=== PATIENT | female | born 1955 | race Two or more races ===

== ENCOUNTER 2022-03-20 13:15 | Emergency (ER) | payer BC, OTHER ==
[~2022-03-20] VITALS: Ht 172.7 cm; Wt 77.1 kg
[2022-03-20 14:30] VITALS: BP 143/66
[2022-03-20] MEDS ORDERED: ALBUTEROL SULF 2.5 MG/0.5ML(0.5%) NEB SOLN NEB ONE (14:30)
[2022-03-20] MEDS ORDERED: IPRATROPIUM BROM 0.5 MG/2.5ML INH SOL NEB ONE (14:30)
[2022-03-20] MEDS ORDERED: PROM1SOL4 PO (15:10)
[2022-03-20] MEDS ORDERED: LEVO500T31 PO (15:10)
[2022-03-20] MEDS ORDERED: PRED20TA2 PO (15:10)
== END 2022-03-20 15:17 | disposition home or self-care (01) ==
LOC: ER 13:15
DX: J45.909 Unspecified asthma, uncomplicated (principal); E11.9 Type 2 diabetes mellitus without complications; E78.5 Hyperlipidemia, unspecified; I10 Essential (primary) hypertension; Z90.710 Acquired absence of both cervix and uterus
CPT/HCPCS: 71045; 71046; 94640; 99284; J7644

== ENCOUNTER 2023-01-03 17:07 | Inpatient (IN) | payer OTHER ==
[~2023-01-03] VITALS: Ht 170.2 cm; Wt 74.5 kg
[~2023-01-03 17:07] MED LIST: LEVO500T31 PO; NITR-87 PO; PRED20TA2 PO; PROM1SOL4 PO
[2023-01-03 18:39] LABS: Basophils # (auto) 0.1 10 ^3/uL (0-0.2); Basophils % (auto) 0.7 % (0.0-2.0); Eosinophils # (auto) 0 10 ^3/uL (0-0.8); Eosinophils % (auto) 0.1 % (0.0-7.0); Hematocrit 45.9 % (36.0-46.0); Hemoglobin 15.8 g/dL (12.2-16.2); Lymphocytes # (auto) 0.4 10 ^3/uL (0.4-5.4); Mean Corpuscular Hemoglobin 31.1 pg (28.0-32.0); Mean Corpuscular Hgb Conc. 34.4 g/dL (32.0-36.0); Mean Corpuscular Volume 90.5 fL (80.0-100.0); Monocytes # (auto) 0.5 10 ^3/uL (0-1.3); Monocytes % (auto) 5.9 % (0.0-12.0); Neutrophils # (auto) 7.7 10 ^3/uL (1.6-8.6); Neutrophils % (auto) 88.3 % (37.0-80.0); Nucleated Red Blood Cells % 0.3 %; Red Blood Cells 5.07 10^6/uL (4.0-5.20); Red Cell Distribution Width 14.9 % (11.8-14.3); White Blood Cell 8.7 10^3/uL (4.4-10.8)
[2023-01-03 19:06] LABS: Albumin 2.9 g/dL (3.4-5.0); Calcium 8.6 mg/dL (8.5-10.1); Potassium 3.3 mmol/L (3.5-5.1)
[2023-01-03 19:10] LABS: BUN/Creatinine Ratio 29.1; Bilirubin, Total 0.6 mg/dL (0.2-1.0); Total Protein 7.2 g/dL (6.4-8.2)
[2023-01-03] MEDS ORDERED: LACTATED RINGER'S 2,000 ML IV ONE (19:15)
[2023-01-03] MEDS ORDERED: ACETAMINOPHEN 325 MG TAB PO ONE (19:15)
[2023-01-03] MEDS ORDERED: cefTRIAXone 1GM/50ML D5W 50 ML IV ONE (19:30)
[2023-01-03] MEDS ORDERED: POTASSIUM CHL 20 Meq TABLET PO ONE (19:45)
[2023-01-03 20:19] LABS: Urine Bacteria NONE SEEN /hpf (None Seen); Urine Blood Negative /uL (Negative); Urine Budding Yeast FEW /hpf (None Seen); Urine Mucus FEW (None Seen); Urine WBC 20 /hpf (0 - 5)
[2023-01-03] MEDS ORDERED: ALBUTEROL SULF 2.5 MG/0.5ML(0.5%) NEB SOLN NEB ONE (21:00)
[2023-01-03] MEDS ORDERED: IPRATROPIUM BROM 0.5 MG/2.5ML INH SOL NEB ONE (21:00)
[2023-01-03] MEDS ORDERED: DexAMETHasone SOD PHOS 10MG/1ML VIAL INJ IV ONE (21:00)
[2023-01-03] MEDS ORDERED: CIPR-173 PO ×2 (21:11)
[2023-01-03] MEDS ORDERED: ACETAMINOPHEN 325 MG TAB PO PRN (22:00)
[2023-01-03] MEDS ORDERED: InsuLIN REG 1unit/0.01ml Soln (100units/ml) SC SCH (22:00)
[2023-01-03] MEDS ORDERED: ONDANSETRON HCL 4 MG/2 ML VIAL IV PRN (22:00)
[2023-01-03] MEDS ORDERED: DOCUSATE SOD 100 MG CAP PO PRN (22:00)
[2023-01-03] MEDS ORDERED: hydrALAZINE HCL 20 MG/ML VL IV ONE (22:00)
[2023-01-03] MEDS ORDERED: MORPHINE SULFATE INJ 2 MG/ml SYRG IV PRN ×2 (22:00→23:30)
[2023-01-03] MEDS ORDERED: ALBUTEROL SULF 2.5 MG/0.5ML(0.5%) NEB SOLN NEB PRN (22:00)
[2023-01-03] MEDS ORDERED: hydrALAZINE HCL 20 MG/ML VL IV PRN (22:00)
[2023-01-03] MEDS: SODIUM CHLORIDE 0.9% 1,000 ML IV SCH (22:00)
[2023-01-03] MEDS ORDERED: IPRATROPIUM BROM 0.5 MG/2.5ML INH SOL NEB PRN (22:00)
[2023-01-03] MEDS ORDERED: DEXTROSE (50%) 50ML SYRG IV PRN (22:00)
[2023-01-03] MEDS: METOPROLOL TARTRATE 50 MG TAB PO SCH (23:02)
[2023-01-03] MEDS: FAMOTIDINE (10MG/ML) 2ML VL IV SCH (23:03)
[2023-01-03 23:08] VITALS: BP 124/64
[2023-01-03] MEDS: ACCU-CHEK COMFORT CURVE STRIP VI SCH (23:10)
[2023-01-03] MEDS ORDERED: NITROGLYCERIN 0.4 MG SL TAB SL PRN (23:30)
[2023-01-04] MEDS: SODIUM CHLORIDE 0.9% 1,000 ML IV SCH (04:10)
[2023-01-04 05:08] LABS: Basophils # (auto) 0 10 ^3/uL (0-0.2); Basophils % (auto) 0.1 % (0.0-2.0); Eosinophils # (auto) 0 10 ^3/uL (0-0.8); Hematocrit 41.9 % (36.0-46.0); Lymphocytes # (auto) 0.6 10 ^3/uL (0.4-5.4); Lymphocytes % (auto) 7.9 % (10.0-50.0); Mean Corpuscular Hemoglobin 31.1 pg (28.0-32.0); Mean Corpuscular Hgb Conc. 33.5 g/dL (32.0-36.0); Mean Corpuscular Volume 92.9 fL (80.0-100.0); Monocytes # (auto) 0.3 10 ^3/uL (0-1.3); Monocytes % (auto) 3.9 % (0.0-12.0); Neutrophils # (auto) 6.5 10 ^3/uL (1.6-8.6); Neutrophils % (auto) 88.1 % (37.0-80.0); Nucleated Red Blood Cells % 0.1 %; Red Blood Cells 4.52 10^6/uL (4.0-5.20); Red Cell Distribution Width 14.9 % (11.8-14.3); White Blood Cell 7.4 10^3/uL (4.4-10.8)
[2023-01-04 05:37] LABS: Albumin 2.6 g/dL (3.4-5.0); BUN/Creatinine Ratio 28.4; Calcium 9.1 mg/dL (8.5-10.1); Potassium 4.6 mmol/L (3.5-5.1)
[2023-01-04 05:48] LABS: Bilirubin, Total 0.4 mg/dL (0.2-1.0); Total Protein 6.7 g/dL (6.4-8.2)
[2023-01-04] MEDS: ACCU-CHEK COMFORT CURVE STRIP VI SCH ×3 (06:35→22:24)
[2023-01-04] MEDS ORDERED: InsuLIN REG 1unit/0.01ml Soln (100units/ml) SC SCH (07:00)
[2023-01-04] MEDS: FAMOTIDINE (10MG/ML) 2ML VL IV SCH (10:00)
[2023-01-04] MEDS ORDERED: InsuLIN REG 1unit/0.01ml Soln (100units/ml) SC ONE (10:00)
[2023-01-04] MEDS: ENOXAPARIN SOD 40 MG/0.4 ML SYRINGE SC SCH (10:00)
[2023-01-04] MEDS: METOPROLOL TARTRATE 50 MG TAB PO SCH ×2 (10:00→22:24)
[2023-01-04] MEDS: amLODIPine BESYLATE 5 MG TAB PO SCH (10:01)
[2023-01-04] MEDS ORDERED: DEXTROSE (50%) 50ML SYRG IV PRN (12:45)
[2023-01-04] MEDS ORDERED: cefTRIAXone 1GM/50ML D5W 50 ML IV ONE (12:45)
[2023-01-04 17:40] VITALS: BP 138/67
[2023-01-04] MEDS: InsuLIN REG 1unit/0.01ml Soln (100units/ml) SC SCH ×2 (18:02→22:21)
[2023-01-04] MEDS ORDERED: METF-372 PO (19:02)
[2023-01-04] MEDS ORDERED: AML5T PO (19:02)
[2023-01-04] MEDS ORDERED: MET50T PO (19:02)
[2023-01-04] MEDS ORDERED: SITA100T7 PO (19:02)
[2023-01-04] MEDS ORDERED: LOSA-69 PO (19:02)
[2023-01-04] MEDS ORDERED: PRAS10TA8 PO (19:02)
[2023-01-04] MEDS ORDERED: EZET10TA22 PO (19:02)
[2023-01-04] MEDS ORDERED: ROPI0.254 PO (19:02)
[2023-01-04] MEDS ORDERED: INSLISPI SC (19:02)
[2023-01-04] MEDS ORDERED: HYDR12.56 PO (19:02)
[2023-01-04] MEDS ORDERED: GLIP10TA9 PO (19:02)
[2023-01-04] MEDS ORDERED: LEV100T PO (19:02)
[2023-01-04] MEDS ORDERED: ROSU20TA14 PO (19:02)
[2023-01-04 22:00] VITALS: BP 137/54
[2023-01-04] MEDS: INSULIN LANTUS (GLARGINE) 1 /0.01ml (100units/ml) SC SCH (22:23)
[2023-01-04] MEDS: PRAMIPEXOLE DIHYDROCHLORIDE MO 0.25 MG TAB PO SCH (22:24)
[2023-01-04] MEDS: HYDROcodone-ACET 5/325MG TAB PO PRN (22:28)
[2023-01-05 05:00] VITALS: BP 135/77
[2023-01-05] MEDS: ACCU-CHEK COMFORT CURVE STRIP VI SCH ×4 (06:17→23:08)
[2023-01-05] MEDS: SODIUM CHLORIDE 0.9% 1,000 ML IV SCH ×2 (06:18→23:08)
[2023-01-05] MEDS: InsuLIN REG 1unit/0.01ml Soln (100units/ml) SC SCH ×4 (06:22→23:07)
[2023-01-05] MEDS: INSULIN LANTUS (GLARGINE) 1 /0.01ml (100units/ml) SC SCH ×2 (06:22→23:05)
[2023-01-05] MEDS: HYDROcodone-ACET 5/325MG TAB PO PRN ×2 (08:22→23:36)
[2023-01-05] MEDS: PRAMIPEXOLE DIHYDROCHLORIDE MO 0.25 MG TAB PO SCH ×2 (09:22→21:45)
[2023-01-05] MEDS: METOPROLOL TARTRATE 50 MG TAB PO SCH ×2 (09:23→21:44)
[2023-01-05] MEDS: ENOXAPARIN SOD 40 MG/0.4 ML SYRINGE SC SCH (09:24)
[2023-01-05] MEDS: amLODIPine BESYLATE 5 MG TAB PO SCH (09:24)
[2023-01-05] MEDS: cefTRIAXone 1GM/50ML D5W 50 ML IV SCH (09:28)
[2023-01-05 10:00] VITALS: BP_SYST 125; BP_SYST 133; BP_DIAS 54; BP_DIAS 66
[2023-01-05 17:00] VITALS: BP 121/60
[2023-01-05 22:00] VITALS: BP 150/64
[2023-01-06 05:00] VITALS: BP 137/65
[2023-01-06] MEDS: InsuLIN REG 1unit/0.01ml Soln (100units/ml) SC SCH ×2 (06:32→12:14)
[2023-01-06] MEDS: ACCU-CHEK COMFORT CURVE STRIP VI SCH ×2 (06:33→12:13)
[2023-01-06] MEDS: INSULIN LANTUS (GLARGINE) 1 /0.01ml (100units/ml) SC SCH (06:34)
[2023-01-06] MEDS: HYDROcodone-ACET 5/325MG TAB PO PRN ×2 (06:37→11:23)
[2023-01-06 08:48] VITALS: BP 149/68
[2023-01-06] MEDS: cefTRIAXone 1GM/50ML D5W 50 ML IV SCH (10:06)
[2023-01-06] MEDS: amLODIPine BESYLATE 5 MG TAB PO SCH (10:06)
[2023-01-06] MEDS: METOPROLOL TARTRATE 50 MG TAB PO SCH (10:07)
[2023-01-06] MEDS: PRAMIPEXOLE DIHYDROCHLORIDE MO 0.25 MG TAB PO SCH (10:07)
[2023-01-06] MEDS ORDERED: INSU1INJ26 SC (13:49)
[2023-01-06] MEDS ORDERED: LEVO-28 PO ×2 (13:49)
[2023-01-06] MEDS ORDERED: LEVO750T64 PO (18:05)
== END 2023-01-06 18:45 | disposition home or self-care (01) | DRG 872 ==
LOC: EDBD 17:07 → ER 17:21 → OVERFLOW 23:21 → WEST WING 01-04 16:58
PROVIDERS: ADMIT Nurse Practitioner Family; ATTEND Hospitalist
DX: A41.51 Sepsis due to Escherichia coli [E. coli] (principal); E87.1 Hypo-osmolality and hyponatremia; N12 Tubulo-interstitial nephritis, not specified as acute or chronic; Z20.822 Contact with and (suspected) exposure to COVID-19; E03.9 Hypothyroidism, unspecified; E87.6 Hypokalemia; E11.65 Type 2 diabetes mellitus with hyperglycemia; I10 Essential (primary) hypertension; J45.909 Unspecified asthma, uncomplicated; Z82.3 Family history of stroke; Z83.3 Family history of diabetes mellitus; Z88.0 Allergy status to penicillin; Z90.710 Acquired absence of both cervix and uterus; Z91.14 Patient's other noncompliance with medication regimen
CPT/HCPCS: 36415; 70450; 71046; 74176; 80053; 81001; 82962; 83036; 83605; 84443; 85025; 85379; 87040; 87077; 87086; 87186; 87426; 93005; 94640; 96365; 96366; 96372; 96375; 97162; 99291; G0378; J0696; J1100; J1815; J3490

== ENCOUNTER 2023-02-19 03:37 | Inpatient (IN) | payer OTHER ==
[~2023-02-19] VITALS: Ht 172.7 cm; Wt 67.0 kg
[~2023-02-19 03:37] MED LIST changes: +AML5T PO; +EZET10TA22 PO; +HYDR12.56 PO; +INSU1INJ26 SC; +LEV100T PO; -LEVO500T31 PO; +LEVO750T64 PO; +LOSA-69 PO; +MET50T PO; +METF-372 PO; -NITR-87 PO; +PRAS10TA8 PO; -PRED20TA2 PO; -PROM1SOL4 PO; +ROPI0.254 PO; +ROSU20TA14 PO; +SITA100T7 PO
[2023-02-19] MEDS ORDERED: ONDANSETRON ODT 4 MG TAB PO ONE (04:30)
[2023-02-19] MEDS ORDERED: KETOROLAC TROMETH 60MG/2ML VIAL IM ONE (04:30)
[2023-02-19 04:35] LABS: Urine Bacteria NONE SEEN /hpf (None Seen); Urine Blood Negative /uL (Negative); Urine Specific Gravity 1.028 (1.001-1.035); Urine WBC 2 /hpf (0 - 5)
[2023-02-19] MEDS ORDERED: CEFTRIAXONE SODIUM 2 GM in D5W 5% 100 ML IV ONE (05:45)
[2023-02-19] MEDS ORDERED: DexAMETHasone SOD PHOS 10MG/1ML VIAL INJ IV ONE (05:45)
[2023-02-19 06:58] LABS: Basophils # (auto) 0.1 10 ^3/uL (0-0.2); Basophils % (auto) 0.7 % (0.0-2.0); Eosinophils # (auto) 0.1 10 ^3/uL (0-0.8); Eosinophils % (auto) 0.7 % (0.0-7.0); Hematocrit 36.9 % (36.0-46.0); Hemoglobin 12.1 g/dL (12.2-16.2); Lymphocytes # (auto) 1.7 10 ^3/uL (0.4-5.4); Mean Corpuscular Hemoglobin 29.8 pg (28.0-32.0); Mean Corpuscular Hgb Conc. 32.8 g/dL (32.0-36.0); Mean Corpuscular Volume 90.9 fL (80.0-100.0); Monocytes # (auto) 0.7 10 ^3/uL (0-1.3); Monocytes % (auto) 7.6 % (0.0-12.0); Neutrophils # (auto) 6.7 10 ^3/uL (1.6-8.6); Nucleated Red Blood Cells % 0.1 %; Red Blood Cells 4.06 10^6/uL (4.0-5.20); Red Cell Distribution Width 15.4 % (11.8-14.3); White Blood Cell 9.2 10^3/uL (4.4-10.8)
[2023-02-19 07:05] LABS: Calcium 9.8 mg/dL (8.5-10.1); Potassium 4.1 mmol/L (3.5-5.1)
[2023-02-19 07:12] LABS: Albumin 3.3 g/dL (3.4-5.0); BUN/Creatinine Ratio 44.3 (10.0-20.0); Bilirubin, Total 0.6 mg/dL (0.2-1.0); Total Protein 7.4 g/dL (6.4-8.2)
[2023-02-19] MEDS ORDERED: GADOTERATE MEG 7.5 MMOL/15ml INJ (0.5MMOL/ml) IV ONE (12:16)
[2023-02-19] MEDS ORDERED: HCTZ 25 MG TAB PO ONE (12:30)
[2023-02-19] MEDS ORDERED: amLODIPine BESYLATE 5 MG TAB PO ONE (12:30)
[2023-02-19] MEDS ORDERED: ALPRAZolam 0.5 MG TAB PO ONE (14:00)
[2023-02-19] MEDS ORDERED: MORPHINE SULFATE INJ 2 MG/ml SYRG IV PRN (14:00)
[2023-02-19] MEDS ORDERED: LORazepam 2MG/ML-1ML VIAL IV PRN (14:00)
[2023-02-19] MEDS ORDERED: NITROGLYCERIN 0.4 MG SL TAB SL PRN (14:00)
[2023-02-19] MEDS ORDERED: DEXTROSE (50%) 50ML SYRG IV PRN (14:15)
[2023-02-19] MEDS ORDERED: VANCOMYCIN PER PHARMACY 0 MG IV SCH (17:15)
[2023-02-19] MEDS: ACCU-CHEK COMFORT CURVE STRIP VI SCH ×2 (17:26→23:09)
[2023-02-19] MEDS ORDERED: VANCOMYCIN 1GM/250ML 250 ML IV ONE (17:30)
[2023-02-19] MEDS: InsuLIN REG 1unit/0.01ml Soln (100units/ml) SC SCH ×2 (17:39→22:38)
[2023-02-19] MEDS: [UNRECOGNIZED DRUG - OTHER] SC SCH (19:00)
[2023-02-19] MEDS: ATORVASTATIN 20 MG TAB PO SCH (22:44)
[2023-02-19] MEDS: METOPROLOL TARTRATE 50 MG TAB PO SCH (23:08)
[2023-02-19 23:23] VITALS: BP 152/81
[2023-02-20] MEDS ORDERED: HYDROcodone-ACET 5/325MG TAB PO PRN (02:30)
[2023-02-20 05:00] VITALS: BP 140/84
[2023-02-20 06:22] LABS: Basophils # (auto) 0 10 ^3/uL (0-0.2); Basophils % (auto) 0.2 % (0.0-2.0); Eosinophils # (auto) 0 10 ^3/uL (0-0.8); Eosinophils % (auto) 0.1 % (0.0-7.0); Hematocrit 37.1 % (36.0-46.0); Hemoglobin 12.5 g/dL (12.2-16.2); Lymphocytes # (auto) 1.2 10 ^3/uL (0.4-5.4); Lymphocytes % (auto) 13.8 % (10.0-50.0); Mean Corpuscular Hemoglobin 30.9 pg (28.0-32.0); Mean Corpuscular Hgb Conc. 33.6 g/dL (32.0-36.0); Monocytes # (auto) 0.7 10 ^3/uL (0-1.3); Monocytes % (auto) 7.9 % (0.0-12.0); Neutrophils # (auto) 6.6 10 ^3/uL (1.6-8.6); Nucleated Red Blood Cells % 0.1 %; Red Blood Cells 4.04 10^6/uL (4.0-5.20); Red Cell Distribution Width 15.3 % (11.8-14.3); White Blood Cell 8.5 10^3/uL (4.4-10.8)
[2023-02-20] MEDS: LEVOTHYROXINE SODIUM 100 MCG TAB PO SCH (06:30)
[2023-02-20] MEDS: ACCU-CHEK COMFORT CURVE STRIP VI SCH ×4 (06:30→21:33)
[2023-02-20] MEDS: InsuLIN REG 1unit/0.01ml Soln (100units/ml) SC SCH ×4 (06:30→21:32)
[2023-02-20 06:34] LABS: Anion Gap 7 (5-15); BUN/Creatinine Ratio 48.5 (10.0-20.0); Blood Urea Nitrogen 32 mg/dL (7-18); Calcium 9.5 mg/dL (8.5-10.1); Carbon Dioxide 23 mmol/L (21-32); Chloride 104 mmol/L (98-107); GFR African American 114 mL/min; GFR Non-African American 94 mL/min; Glucose 304 mg/dL (74-106); Sodium 134 mmol/L (136-145)
[2023-02-20] MEDS: [UNRECOGNIZED DRUG - OTHER] SC SCH ×2 (08:00→18:00)
[2023-02-20 08:16] VITALS: BP 136/60
[2023-02-20] MEDS: VANCOMYCIN 1GM/250ML 250 ML IV SCH ×2 (09:23→23:41)
[2023-02-20] MEDS: PRASUGREL HCL 10 MG TAB PO SCH (09:24)
[2023-02-20] MEDS: LOSARTAN POTASSIUM 50 MG TAB PO SCH (09:24)
[2023-02-20] MEDS: METOPROLOL TARTRATE 50 MG TAB PO SCH ×2 (09:25→21:33)
[2023-02-20] MEDS: amLODIPine BESYLATE 5 MG TAB PO SCH (09:25)
[2023-02-20] MEDS: ROPINIROLE HYDROCHLORIDE 0.25 MG PO SCH (10:00)
[2023-02-20] MEDS: SITAGLIPTIN PHOSPHATE PO SCH (10:00)
[2023-02-20 12:00] VITALS: BP 140/70
[2023-02-20] MEDS: KETOROLAC TROMETH 30 MG/ML 1ML VIAL IV PRN ×2 (13:23→22:39)
[2023-02-20] MEDS: CEFTRIAXONE SODIUM 2 GM in D5W 5% 100 ML IV SCH (14:48)
[2023-02-20 17:19] VITALS: BP 142/72
[2023-02-20 19:26] LABS: INR 1.1 (0.9-1.15)
[2023-02-20 20:10] VITALS: BP 140/67
[2023-02-20] MEDS: ATORVASTATIN 20 MG TAB PO SCH (21:33)
[2023-02-20 22:00] VITALS: BP 140/67
[2023-02-21 05:00] VITALS: BP 136/79
[2023-02-21] MEDS: InsuLIN REG 1unit/0.01ml Soln (100units/ml) SC SCH ×4 (06:48→21:33)
[2023-02-21] MEDS: KETOROLAC TROMETH 30 MG/ML 1ML VIAL IV PRN (06:50)
[2023-02-21] MEDS: ACCU-CHEK COMFORT CURVE STRIP VI SCH ×4 (06:54→21:42)
[2023-02-21] MEDS: LEVOTHYROXINE SODIUM 100 MCG TAB PO SCH (06:54)
[2023-02-21] MEDS: [UNRECOGNIZED DRUG - OTHER] SC SCH ×2 (08:00→18:00)
[2023-02-21 09:00] VITALS: BP 135/67
[2023-02-21] MEDS: CEFTRIAXONE SODIUM 2 GM in D5W 5% 100 ML IV SCH (09:53)
[2023-02-21] MEDS: PRASUGREL HCL 10 MG TAB PO SCH (09:53)
[2023-02-21] MEDS: METOPROLOL TARTRATE 50 MG TAB PO SCH ×2 (09:55→21:41)
[2023-02-21] MEDS: LOSARTAN POTASSIUM 50 MG TAB PO SCH (09:55)
[2023-02-21] MEDS: amLODIPine BESYLATE 5 MG TAB PO SCH (09:56)
[2023-02-21] MEDS: ROPINIROLE HYDROCHLORIDE 0.25 MG PO SCH (10:00)
[2023-02-21] MEDS: SITAGLIPTIN PHOSPHATE PO SCH (10:00)
[2023-02-21 13:00] VITALS: BP 129/68
[2023-02-21] MEDS: VANCOMYCIN 1GM/250ML 250 ML IV SCH (15:38)
[2023-02-21 17:00] VITALS: BP 118/59
[2023-02-21] MEDS: MORPHINE SULFATE 4 MG/ML SYR/VIAL IV PRN ×2 (17:02→21:43)
[2023-02-21] MEDS ORDERED: LIDOCAINE 1% (LOCAL ANESTH.) PF 5ml SDV ID ONE (18:45)
[2023-02-21 19:40] VITALS: BP 145/75
[2023-02-21] MEDS: HYDROcodone-ACET 5/325MG TAB PO PRN (20:17)
[2023-02-21] MEDS: ATORVASTATIN 20 MG TAB PO SCH (21:41)
[2023-02-21] MEDS: SODIUM CHLOR 0.9% PF (SALINE LOCK) 10ML VIAL/SYR IV SCH (21:41)
[2023-02-21 22:00] VITALS: BP 145/75
[2023-02-21] MEDS ORDERED: INSULIN LANTUS (GLARGINE) 1 /0.01ml (100units/ml) SC SCH (22:00)
[2023-02-22] MEDS: VANCOMYCIN 1GM/250ML 250 ML IV SCH ×2 (02:30→14:09)
[2023-02-22 05:00] VITALS: BP 138/68
[2023-02-22] MEDS: InsuLIN REG 1unit/0.01ml Soln (100units/ml) SC SCH ×4 (06:24→21:44)
[2023-02-22] MEDS: MORPHINE SULFATE 4 MG/ML SYR/VIAL IV PRN (06:26)
[2023-02-22] MEDS: LEVOTHYROXINE SODIUM 100 MCG TAB PO SCH (06:26)
[2023-02-22] MEDS: ACCU-CHEK COMFORT CURVE STRIP VI SCH ×4 (06:27→21:36)
[2023-02-22] MEDS: [UNRECOGNIZED DRUG - OTHER] SC SCH ×2 (08:00→18:00)
[2023-02-22 08:10] VITALS: BP 139/70
[2023-02-22 09:00] VITALS: BP 126/75
[2023-02-22] MEDS: SITAGLIPTIN PHOSPHATE PO SCH (10:00)
[2023-02-22] MEDS: ROPINIROLE HYDROCHLORIDE 0.25 MG PO SCH (10:00)
[2023-02-22] MEDS: HYDROcodone-ACET 5/325MG TAB PO PRN ×3 (10:01→21:39)
[2023-02-22] MEDS: METOPROLOL TARTRATE 50 MG TAB PO SCH ×2 (10:03→21:36)
[2023-02-22] MEDS: LOSARTAN POTASSIUM 50 MG TAB PO SCH (10:04)
[2023-02-22] MEDS: amLODIPine BESYLATE 5 MG TAB PO SCH (10:05)
[2023-02-22] MEDS: PRASUGREL HCL 10 MG TAB PO SCH (10:05)
[2023-02-22] MEDS: ENOXAPARIN SOD 40 MG/0.4 ML SYRINGE SC SCH (10:06)
[2023-02-22] MEDS: SODIUM CHLOR 0.9% PF (SALINE LOCK) 10ML VIAL/SYR IV SCH ×2 (10:07→21:35)
[2023-02-22] MEDS: CEFTRIAXONE SODIUM 2 GM in D5W 5% 100 ML IV SCH (10:07)
[2023-02-22 13:00] VITALS: BP 139/70
[2023-02-22 17:00] VITALS: BP 130/63
[2023-02-22] MEDS: ATORVASTATIN 20 MG TAB PO SCH (21:36)
[2023-02-22] MEDS: INSULIN LANTUS (GLARGINE) 1 /0.01ml (100units/ml) SC SCH (21:44)
[2023-02-22 22:00] VITALS: BP 160/67
[2023-02-23] VITALS (7 sets, daily range): BP systolic 137–148; BP diastolic 56–74
[2023-02-23] MEDS: VANCOMYCIN 1GM/250ML 250 ML IV SCH ×2 (04:22→14:02)
[2023-02-23] MEDS: ACCU-CHEK COMFORT CURVE STRIP VI SCH ×4 (06:23→21:19)
[2023-02-23] MEDS: InsuLIN REG 1unit/0.01ml Soln (100units/ml) SC SCH ×4 (06:23→21:19)
[2023-02-23] MEDS: HYDROcodone-ACET 5/325MG TAB PO PRN ×3 (06:24→20:42)
[2023-02-23] MEDS: LEVOTHYROXINE SODIUM 100 MCG TAB PO SCH (06:24)
[2023-02-23] MEDS: [UNRECOGNIZED DRUG - OTHER] SC SCH ×2 (08:00→17:07)
[2023-02-23] MEDS: SODIUM CHLOR 0.9% PF (SALINE LOCK) 10ML VIAL/SYR IV SCH ×2 (09:41→21:18)
[2023-02-23] MEDS: SITAGLIPTIN PHOSPHATE PO SCH (09:41)
[2023-02-23] MEDS: ROPINIROLE HYDROCHLORIDE 0.25 MG PO SCH (09:41)
[2023-02-23] MEDS: PRASUGREL HCL 10 MG TAB PO SCH (09:42)
[2023-02-23] MEDS: LOSARTAN POTASSIUM 50 MG TAB PO SCH (09:43)
[2023-02-23] MEDS: amLODIPine BESYLATE 5 MG TAB PO SCH (09:43)
[2023-02-23] MEDS: ENOXAPARIN SOD 40 MG/0.4 ML SYRINGE SC SCH (09:44)
[2023-02-23] MEDS: METOPROLOL TARTRATE 50 MG TAB PO SCH ×2 (09:44→21:18)
[2023-02-23] MEDS: MORPHINE SULFATE 4 MG/ML SYR/VIAL IV PRN (10:01)
[2023-02-23] MEDS: CEFTRIAXONE SODIUM 2 GM in D5W 5% 100 ML IV SCH (10:01)
[2023-02-23] MEDS: INSULIN LANTUS (GLARGINE) 1 /0.01ml (100units/ml) SC SCH (21:19)
[2023-02-23] MEDS: ATORVASTATIN 20 MG TAB PO SCH (21:20)
[2023-02-24] MEDS: VANCOMYCIN 1GM/250ML 250 ML IV SCH ×2 (00:12→12:13)
[2023-02-24] MEDS: HYDROcodone-ACET 5/325MG TAB PO PRN ×4 (02:14→18:17)
[2023-02-24 05:00] VITALS: BP 144/70
[2023-02-24] MEDS: LEVOTHYROXINE SODIUM 100 MCG TAB PO SCH (06:19)
[2023-02-24] MEDS: ACCU-CHEK COMFORT CURVE STRIP VI SCH ×3 (06:19→18:20)
[2023-02-24] MEDS: InsuLIN REG 1unit/0.01ml Soln (100units/ml) SC SCH ×3 (06:20→18:21)
[2023-02-24] MEDS: [UNRECOGNIZED DRUG - OTHER] SC SCH ×2 (08:00→18:00)
[2023-02-24] MEDS: LOSARTAN POTASSIUM 50 MG TAB PO SCH (08:48)
[2023-02-24] MEDS: METOPROLOL TARTRATE 50 MG TAB PO SCH (08:49)
[2023-02-24] MEDS: SODIUM CHLOR 0.9% PF (SALINE LOCK) 10ML VIAL/SYR IV SCH (08:50)
[2023-02-24] MEDS: amLODIPine BESYLATE 5 MG TAB PO SCH (08:50)
[2023-02-24] MEDS: ENOXAPARIN SOD 40 MG/0.4 ML SYRINGE SC SCH (08:51)
[2023-02-24] MEDS: CEFTRIAXONE SODIUM 2 GM in D5W 5% 100 ML IV SCH (08:59)
[2023-02-24 09:00] VITALS: BP 144/79
[2023-02-24] MEDS ORDERED: INSUINJ37 SC (09:12)
[2023-02-24] MEDS ORDERED: HYDR-4902 PO (09:12)
[2023-02-24] MEDS: ROPINIROLE HYDROCHLORIDE 0.25 MG PO SCH (10:00)
[2023-02-24] MEDS: SITAGLIPTIN PHOSPHATE PO SCH (10:00)
[2023-02-24] MEDS: PRASUGREL HCL 10 MG TAB PO SCH (10:00)
[2023-02-24 10:01] LABS: Calcium 9.2 mg/dL (8.5-10.1)
[2023-02-24 10:03] LABS: BUN/Creatinine Ratio 19.6 (10.0-20.0)
[2023-02-24 13:00] VITALS: BP 127/73
[2023-02-24 17:00] VITALS: BP 124/73
== END 2023-02-24 18:00 | disposition home health service (06) | DRG 551 ==
LOC: ER 03:37 → OVERFLOW 13:49 → CENTRAL 21:35
PROVIDERS: ADMIT Hospitalist; ATTEND Hospitalist
PROC: 02HV33Z Insertion of Infusion Device into Superior Vena Cava, Percutaneous Approach (ICD-10-PCS; principal; 2023-02-21)
PROC: B548ZZA Ultrasonography of Superior Vena Cava, Guidance (ICD-10-PCS; 2023-02-21)
DX: M46.45 Discitis, unspecified, thoracolumbar region (principal); E11.00 Type 2 diabetes mellitus with hyperosmolarity without nonketotic hyperglycemic-hyperosmolar coma (NKHHC); M46.24 Osteomyelitis of vertebra, thoracic region; M48.54XA Collapsed vertebra, not elsewhere classified, thoracic region, initial encounter for fracture; J45.909 Unspecified asthma, uncomplicated; I10 Essential (primary) hypertension; S39.012A Strain of muscle, fascia and tendon of lower back, initial encounter; E11.69 Type 2 diabetes mellitus with other specified complication; M41.86 Other forms of scoliosis, lumbar region; Z88.0 Allergy status to penicillin; Z90.710 Acquired absence of both cervix and uterus; Z91.040 Latex allergy status; Z91.011 Allergy to milk products; Z90.49 Acquired absence of other specified parts of digestive tract; Z98.61 Coronary angioplasty status; Z82.49 Family history of ischemic heart disease and other diseases of the circulatory system; Z90.89 Acquired absence of other organs; Z82.3 Family history of stroke; Z83.3 Family history of diabetes mellitus
CPT/HCPCS: 36415; 36569; 71045; 72100; 72128; 72146; 72148; 80048; 80053; 80202; 81001; 82565; 82962; 83605; 85025; 85610; 85652; 85730; 87040; 87081; 93306; 96365; 96367; 96372; 96375; G0378; J0696; J1100; J1815; J1885; J7060; Q0162

== ENCOUNTER 2024-06-06 18:44 | Emergency (ER) | payer OTHER ==
[~2024-06-06] VITALS: Ht 172.7 cm; Wt 70.0 kg
[~2024-06-06 18:44] MED LIST changes: -HYDR12.56 PO; +HYDR12.59 PO; +INSUINJ37 SC; -LEVO750T64 PO; +LOSA-534 PO; -LOSA-69 PO; -ROPI0.254 PO; +ROPI5TAB20 PO
[2024-06-06 18:55] VITALS: BP 112/62; RESP 16; O2SAT 100
[2024-06-06 19:40] LABS: Alanine Aminotransferase 101 U/L (7-40); Albumin 4.7 g/dL (3.2-4.8); Alkaline Phosphatase 65 U/L (46-116); Anion Gap 5 (5-15); Aspartate Aminotransferase 32 U/L (13-40); Bilirubin, Total 0.7 mg/dL (0.2-1.0); Blood Urea Nitrogen 28 mg/dL (9-23); Calcium 9.6 mg/dL (8.7-10.4); Carbon Dioxide 31 mmol/L (20-30); Chloride 105 mmol/L (98-107); Glucose 299 mg/dL (74-106); Magnesium 1.3 mg/dL (1.6-2.6); Potassium 4.2 mmol/L (3.5-5.1); Sodium 141 mmol/L (136-145); Total Protein 6.9 g/dL (5.7-8.2)
[2024-06-06 19:45] VITALS: PULSE 72
[2024-06-06 20:12] LABS: Basophils # (auto) 0.1 10 ^3/uL (0-0.2); Basophils % (auto) 0.6 % (0.0-2.0); Eosinophils # (auto) 0.1 10 ^3/uL (0-0.8); Eosinophils % (auto) 0.7 % (0.0-7.0); Hematocrit 42.6 % (36.0-46.0); Hemoglobin 14.5 g/dL (12.2-16.2); Lymphocytes # (auto) 1.4 10 ^3/uL (0.4-5.4); Monocytes # (auto) 0.7 10 ^3/uL (0-1.3); Monocytes % (auto) 7.8 % (0.0-12.0); Neutrophils # (auto) 7.2 10 ^3/uL (1.6-8.6); Neutrophils % (auto) 75.9 % (37.0-80.0); Nucleated Red Blood Cells % 0.1 %; Red Blood Cells 4.54 10^6/uL (4.0-5.20); Red Cell Distribution Width 14.9 % (11.8-14.3); White Blood Cell 9.6 10^3/uL (4.4-10.8)
== END 2024-06-07 01:47 | disposition home or self-care (01) ==
LOC: ER 18:44
DX: R10.84 Generalized abdominal pain (principal); R07.89 Other chest pain; J45.909 Unspecified asthma, uncomplicated; E11.9 Type 2 diabetes mellitus without complications; E78.5 Hyperlipidemia, unspecified; I10 Essential (primary) hypertension; Z90.710 Acquired absence of both cervix and uterus; Z88.0 Allergy status to penicillin; Z91.040 Latex allergy status
CPT/HCPCS: 36415; 71250; 74176; 80053; 83735; 84484; 85025; 93005